=== PATIENT | male | born 1980 | race Caucasian/White ===

== ENCOUNTER 2021-11-03 13:23 | Inpatient (IN) | payer MEDICAID ==
[~2021-11-03] VITALS: Ht 188 cm; Wt 98.1 kg
[2021-11-03] MEDS ORDERED: HALOPERIDOL LACTATE 5 MG/ML VIAL IM ONE (13:45)
[2021-11-03] MEDS ORDERED: DiphenhydrAMINE HCL 50 MG/ML VIAL IM ONE (13:45)
[2021-11-03] MEDS ORDERED: LORazepam 2 MG/ML VIAL IM ONE (13:45)
[2021-11-03 14:08] LABS: BASOPHILS % (AUTO) 0.4 % (0.0-2.0); EOSINOPHILS % (AUTO) 1.1 % (1.0-6.0); HEMATOCRIT 46.1 % (41-53); HEMOGLOBIN 15.9 g/dL (13.5-17.5); LYMPHOCYTES # (AUTO) 3.3 K/uL (1.0-4.8); LYMPHOCYTES % (AUTO) 31.9 % (22.0-44.0); MEAN CORPUSCULAR HEMOGLOBIN 29.9 pg (26.0-34.0); MEAN CORPUSCULAR HGB CONC 34.5 G/dL (31.0-37.0); MEAN CORPUSCULAR VOLUME 87 fL (80-100); MONOCYTES # (AUTO) 0.8 K/uL (0.1-1.0); MONOCYTES % (AUTO) 7.4 % (2.0-9.0); NEUTROPHILS # (AUTO) 6.1 K/uL (1.8-7.7); NEUTROPHILS % (AUTO) 59.2 % (40.0-70.0); PLATELET COUNT (AUTO) 522 K/uL (150-450); RED BLOOD CELL COUNT(AUTO) 5.32 MIL/uL (4.50-5.90); RED CELL DISTRIBUTION WIDTH 14.1 % (11.5-14.5)
[2021-11-03 14:27] LABS: COVID AG,FIA SOURCE NASAL SWAB
[2021-11-03 14:32] LABS: ANION GAP 14 mmol/L (8-16); CALCIUM, TOTAL 9.5 mg/dL (8.8-10.5); CARBON DIOXIDE 25 mmol/L (22-29); CHLORIDE 100 mmol/L (98-107); CREATININE 1.21 mg/dL (0.60-1.30); GLOMERULAR FILTR. RATE CALC > 60 mL/min (>60); GLUCOSE,RANDOM 134 mg/dL (70-110); POTASSIUM 3.4 mmol/L (3.5-5.1); SODIUM SERUM 139 mmol/L (136-145); UREA NITROGEN, BLOOD 11 mg/dL (7-18)
[2021-11-03 14:38] LABS: ALANINE AMINOTRANSFERASE 27 U/L (12-78); ALKALINE PHOSPHATASE 96 U/L (46-116); ASPARTATE AMINOTRANSFERASE 24 U/L (15-37); BILIRUBIN,TOTAL 1.1 mg/dL (0.1-1.0); TOTAL PROTEIN, SERUM 8.7 g/dL (6.4-8.2)
[2021-11-03] MEDS ORDERED: POTASSIUM CHLORIDE 20 MEQ ER TABLET PO ONE (14:45)
[2021-11-03 14:53] LABS: AMPHET/METH SCREEN,URINE POSITIVE (NEGATIVE); BARBITURATE SCREEN, URINE NEGATIVE (NEGATIVE); BENZODIAZEPINES SCREEN,URINE NEGATIVE (NEGATIVE); CANNABINOID SCREEN,URINE POSITIVE (NEGATIVE); COCAINE SCREEN,URINE NEGATIVE (NEGATIVE); METHADONE SCREEN, URINE NEGATIVE (NEGATIVE); OPIATE SCREEN,URINE NEGATIVE (NEGATIVE)
[2021-11-03 14:54] LABS: PHENCYCLIDINE SCREEN,URINE NEGATIVE (NEGATIVE)
[2021-11-03] MEDS ORDERED: INFLUENZA VIRUS VACCINE QVS 2021-22 (6MO+)/PF 60 MCG/0.5 ML SYRINGE IM. ONE (17:45)
[2021-11-03 18:25] VITALS: BP 94/61
[2021-11-04] MEDS ORDERED: CloNIDine HCL 0.1 MG TABLET PO PRN (06:15)
[2021-11-04] MEDS ORDERED: IBUPROFEN 400 MG TABLET PO PRN (06:15)
[2021-11-04] MEDS ORDERED: GuaiFENesin/D-METHORPHAN [SUGAR-FREE] 200-20MG/10 ML SYRUP UDCUP PO PRN (06:15)
[2021-11-04] MEDS ORDERED: PETROLATUM,WHITE 28 GM JELLY TP PRN (06:15)
[2021-11-04] MEDS ORDERED: MAGNESIUM HYDROXIDE SUSPENSION 30 ML UDCUP PO PRN (06:15)
[2021-11-04] MEDS ORDERED: ONDANSETRON HCL 4 MG TABLET PO PRN (06:15)
[2021-11-04] MEDS ORDERED: NICOTINE 14 MG/24 HOUR PATCH TD PRN (06:15)
[2021-11-04] MEDS ORDERED: ACETAMINOPHEN 325 MG TABLET PO PRN (06:15)
[2021-11-04] MEDS ORDERED: MAG HYDROX/AL HYDROX/SIMETH ES 30 ML SUSPENSION UDCUP PO PRN (06:15)
[2021-11-04] MEDS ORDERED: LOPERAMIDE HCL 2 MG CAPSULE PO PRN (06:15)
[2021-11-04] MEDS ORDERED: DOCUSATE SODIUM 100 MG CAPSULE PO PRN (06:15)
[2021-11-04] MEDS ORDERED: ALBUTEROL SULFATE HFA 90 MCG/PUFF 8 GM INHALER IH PRN (06:15)
[2021-11-04 08:00] VITALS: BP 120/72
[2021-11-04] MEDS: LORazepam 2 MG TABLET PO PRN (16:11)
[2021-11-04] MEDS: VENLAFAXINE HCL 150 MG ER CAPSULE PO SCH (17:20)
[2021-11-04] MEDS: DOCOSANOL 10% 2 GM CREAM TP SCH (20:14)
[2021-11-04] MEDS: OLANZapine 10 MG TABLET PO SCH (20:15)
[2021-11-05 08:00] VITALS: BP 132/76
[2021-11-05] MEDS: VENLAFAXINE HCL 150 MG ER CAPSULE PO SCH (09:05)
[2021-11-05] MEDS: DOCOSANOL 10% 2 GM CREAM TP SCH ×3 (09:06→16:06)
[2021-11-05 16:02] VITALS: BP 123/83
[2021-11-05] MEDS: LORazepam 2 MG TABLET PO PRN (16:06)
[2021-11-05] MEDS: MUPIROCIN CALCIUM 2% 22 GM OINTMENT NASAL SCH (17:39)
[2021-11-05] MEDS: OLANZapine 10 MG TABLET PO SCH (20:04)
[2021-11-06] MEDS: LORazepam 2 MG TABLET PO PRN ×2 (06:34→15:59)
[2021-11-06] MEDS: MUPIROCIN CALCIUM 2% 22 GM OINTMENT NASAL SCH ×2 (09:45→16:13)
[2021-11-06] MEDS: DOCOSANOL 10% 2 GM CREAM TP SCH ×3 (09:46→16:13)
[2021-11-06] MEDS: VENLAFAXINE HCL 150 MG ER CAPSULE PO SCH (09:47)
[2021-11-06 16:44] VITALS: BP 148/93
[2021-11-06] MEDS: OLANZapine 10 MG TABLET PO SCH (20:29)
[2021-11-07] MEDS: LORazepam 2 MG TABLET PO PRN ×3 (06:01→22:59)
[2021-11-07] MEDS: VENLAFAXINE HCL 150 MG ER CAPSULE PO SCH (08:31)
[2021-11-07] MEDS: DOCOSANOL 10% 2 GM CREAM TP SCH ×2 (08:32→13:18)
[2021-11-07] MEDS: MUPIROCIN CALCIUM 2% 22 GM OINTMENT NASAL SCH ×2 (08:32→16:24)
[2021-11-07 08:43] VITALS: BP 121/80
[2021-11-07] MEDS ORDERED: KETOROLAC TROMETHAMINE 60 MG/2 ML VIAL IM ONE (16:00)
[2021-11-07] MEDS ORDERED: CEPHALEXIN MONOHYDRATE 500 MG CAPSULE PO ONE (16:00)
[2021-11-07] MEDS ORDERED: DOXYCYCLINE HYCLATE 100 MG TABLET PO ONE (16:00)
[2021-11-07] MEDS ORDERED: GABAPENTIN 300 MG CAPSULE PO ONE (16:00)
[2021-11-07] MEDS ORDERED: LORazepam 2 MG TABLET PO ONE (16:00)
[2021-11-07 16:06] VITALS: BP 128/77
[2021-11-07] MEDS: CEPHALEXIN MONOHYDRATE 500 MG CAPSULE PO SCH (21:31)
[2021-11-07] MEDS: OLANZapine 10 MG TABLET PO SCH (21:31)
[2021-11-08 08:00] VITALS: BP 107/58
[2021-11-08] MEDS: CEPHALEXIN MONOHYDRATE 500 MG CAPSULE PO SCH ×4 (09:42→20:07)
[2021-11-08] MEDS: DOXYCYCLINE HYCLATE 100 MG TABLET PO SCH ×2 (09:42→20:07)
[2021-11-08] MEDS: VENLAFAXINE HCL 150 MG ER CAPSULE PO SCH (09:43)
[2021-11-08] MEDS: MUPIROCIN CALCIUM 2% 22 GM OINTMENT NASAL SCH ×2 (09:45→16:02)
[2021-11-08] MEDS: IBUPROFEN 400 MG TABLET PO PRN ×2 (11:37→20:12)
[2021-11-08] MEDS: LORazepam 2 MG TABLET PO PRN ×2 (11:37→16:15)
[2021-11-08 16:35] VITALS: BP 117/63
[2021-11-08] MEDS: OLANZapine 10 MG TABLET PO SCH (20:07)
[2021-11-08 20:12] VITALS: BP 116/71
[2021-11-09] MEDS: LORazepam 2 MG TABLET PO PRN ×3 (04:28→17:49)
[2021-11-09] MEDS: DOXYCYCLINE HYCLATE 100 MG TABLET PO SCH ×2 (08:07→20:29)
[2021-11-09] MEDS: MUPIROCIN CALCIUM 2% 22 GM OINTMENT NASAL SCH ×2 (08:07→16:18)
[2021-11-09] MEDS: CEPHALEXIN MONOHYDRATE 500 MG CAPSULE PO SCH ×4 (08:07→20:29)
[2021-11-09] MEDS: VENLAFAXINE HCL 150 MG ER CAPSULE PO SCH (08:07)
[2021-11-09 08:18] VITALS: BP 117/63
[2021-11-09 16:12] VITALS: BP 112/74
[2021-11-09] MEDS: HALOPERIDOL 5 MG TABLET PO PRN (16:19)
[2021-11-09] MEDS: OLANZapine 10 MG TABLET PO SCH (20:28)
[2021-11-09] MEDS: ZOLPIDEM TARTRATE 10 MG TABLET PO PRN (20:29)
[2021-11-10 06:18] VITALS: BP 132/88
[2021-11-10] MEDS: LORazepam 2 MG TABLET PO PRN ×3 (06:18→17:01)
[2021-11-10 08:24] VITALS: BP 121/82
[2021-11-10] MEDS: VENLAFAXINE HCL 150 MG ER CAPSULE PO SCH (10:32)
[2021-11-10] MEDS: DOXYCYCLINE HYCLATE 100 MG TABLET PO SCH ×2 (10:32→20:14)
[2021-11-10] MEDS: MUPIROCIN CALCIUM 2% 22 GM OINTMENT NASAL SCH (10:34)
[2021-11-10] MEDS: CEPHALEXIN MONOHYDRATE 500 MG CAPSULE PO SCH ×4 (10:35→20:14)
[2021-11-10 14:05] LABS: COVID AG,FIA SOURCE NASAL SWAB
[2021-11-10] MEDS: HALOPERIDOL 5 MG TABLET PO PRN (15:49)
[2021-11-10 16:06] VITALS: BP 110/55
[2021-11-10] MEDS: OLANZapine 10 MG TABLET PO SCH (20:14)
[2021-11-10] MEDS: ZOLPIDEM TARTRATE 10 MG TABLET PO PRN (20:15)
[2021-11-11 08:05] VITALS: BP 108/86
[2021-11-11] MEDS: DOXYCYCLINE HYCLATE 100 MG TABLET PO SCH ×2 (09:26→20:03)
[2021-11-11] MEDS: VENLAFAXINE HCL 150 MG ER CAPSULE PO SCH (09:26)
[2021-11-11] MEDS: LORazepam 2 MG TABLET PO PRN ×3 (09:27→17:50)
[2021-11-11] MEDS: CEPHALEXIN MONOHYDRATE 500 MG CAPSULE PO SCH ×4 (09:27→20:03)
[2021-11-11] MEDS: HALOPERIDOL 5 MG TABLET PO PRN (15:52)
[2021-11-11 16:30] VITALS: BP 116/56
[2021-11-11] MEDS: ZOLPIDEM TARTRATE 10 MG TABLET PO PRN (20:03)
[2021-11-11] MEDS: OLANZapine 10 MG TABLET PO SCH (20:03)
[2021-11-12] MEDS: LORazepam 2 MG TABLET PO PRN ×3 (06:45→15:53)
[2021-11-12 09:04] VITALS: BP 106/73
[2021-11-12] MEDS: DOXYCYCLINE HYCLATE 100 MG TABLET PO SCH ×2 (09:29→20:26)
[2021-11-12] MEDS: VENLAFAXINE HCL 150 MG ER CAPSULE PO SCH (09:29)
[2021-11-12] MEDS: CEPHALEXIN MONOHYDRATE 500 MG CAPSULE PO SCH ×4 (09:29→20:31)
[2021-11-12] MEDS: HALOPERIDOL 5 MG TABLET PO PRN (15:52)
[2021-11-12 16:05] VITALS: BP 121/78
[2021-11-12] MEDS: ZOLPIDEM TARTRATE 10 MG TABLET PO PRN (20:27)
[2021-11-12] MEDS: OLANZapine 10 MG TABLET PO SCH (20:27)
[2021-11-13] MEDS: CEPHALEXIN MONOHYDRATE 500 MG CAPSULE PO SCH ×4 (08:23→20:08)
[2021-11-13] MEDS: LORazepam 2 MG TABLET PO PRN ×3 (08:23→20:08)
[2021-11-13] MEDS: VENLAFAXINE HCL 150 MG ER CAPSULE PO SCH (08:23)
[2021-11-13] MEDS: DOXYCYCLINE HYCLATE 100 MG TABLET PO SCH ×2 (08:23→20:08)
[2021-11-13 08:24] VITALS: BP 123/92
[2021-11-13] MEDS: HALOPERIDOL 5 MG TABLET PO PRN ×2 (08:33→15:44)
[2021-11-13 16:07] VITALS: BP 126/89
[2021-11-13] MEDS: OLANZapine 10 MG TABLET PO SCH (20:08)
[2021-11-14 08:12] VITALS: BP 107/62
[2021-11-14] MEDS: VENLAFAXINE HCL 150 MG ER CAPSULE PO SCH (08:52)
[2021-11-14] MEDS: DOXYCYCLINE HYCLATE 100 MG TABLET PO SCH ×2 (08:52→20:19)
[2021-11-14] MEDS: CEPHALEXIN MONOHYDRATE 500 MG CAPSULE PO SCH ×3 (08:52→16:29)
[2021-11-14] MEDS: LORazepam 2 MG TABLET PO PRN ×3 (08:53→19:00)
[2021-11-14] MEDS: HALOPERIDOL 5 MG TABLET PO PRN ×2 (15:45→19:00)
[2021-11-14 16:00] VITALS: BP 124/80
[2021-11-14 16:55] VITALS: BP 124/80
[2021-11-14] MEDS: OLANZapine 10 MG TABLET PO SCH (20:19)
[2021-11-14] MEDS: ZOLPIDEM TARTRATE 10 MG TABLET PO PRN (20:20)
[2021-11-15 08:09] VITALS: BP 100/62
[2021-11-15] MEDS: VENLAFAXINE HCL 150 MG ER CAPSULE PO SCH (08:18)
[2021-11-15] MEDS: LORazepam 2 MG TABLET PO PRN ×3 (08:18→19:00)
[2021-11-15 16:24] VITALS: BP 111/79
[2021-11-15] MEDS: HALOPERIDOL 5 MG TABLET PO PRN (19:00)
[2021-11-15] MEDS: OLANZapine 10 MG TABLET PO SCH (20:01)
[2021-11-15] MEDS: ZOLPIDEM TARTRATE 10 MG TABLET PO PRN (20:30)
[2021-11-16 08:10] VITALS: BP 114/73
[2021-11-16] MEDS: LORazepam 2 MG TABLET PO PRN ×2 (10:36→16:10)
[2021-11-16] MEDS: VENLAFAXINE HCL 150 MG ER CAPSULE PO SCH (10:36)
[2021-11-16 13:54] LABS: COVID AG,FIA SOURCE NASOPHARYNGEAL
[2021-11-16 16:25] VITALS: BP 116/80
[2021-11-16 20:27] VITALS: BP 140/78
[2021-11-16] MEDS: ZOLPIDEM TARTRATE 10 MG TABLET PO PRN (20:33)
[2021-11-16] MEDS: OLANZapine 10 MG TABLET PO SCH (20:35)
[2021-11-17] MEDS: LORazepam 2 MG TABLET PO PRN (07:41)
[2021-11-17] MEDS: VENLAFAXINE HCL 150 MG ER CAPSULE PO SCH (07:42)
[2021-11-17 08:00] VITALS: BP 130/90
[2021-11-17] MEDS ORDERED: OLAN10 PO (10:00)
[2021-11-17] MEDS ORDERED: VENL150C2 PO (10:00)
== END 2021-11-17 10:15 | disposition home or self-care (01) | DRG 750 ==
LOC: EMS 13:30 → 3EC 14:06
PROVIDERS: ADMIT Psychiatry & Neurology Child & Adolescent Psychiatry; ATTEND Psychiatry & Neurology Child & Adolescent Psychiatry
DX: F25.0 Schizoaffective disorder, bipolar type (principal); D75.839 Thrombocytosis, unspecified; F12.90 Cannabis use, unspecified, uncomplicated; F17.200 Nicotine dependence, unspecified, uncomplicated; F19.11 Other psychoactive substance abuse, in remission; F41.9 Anxiety disorder, unspecified; E87.6 Hypokalemia; B00.1 Herpesviral vesicular dermatitis; F10.10 Alcohol abuse, uncomplicated; Z20.822 Contact with and (suspected) exposure to COVID-19; F99 Mental disorder, not otherwise specified; F15.10 Other stimulant abuse, uncomplicated
CPT/HCPCS: 80053; 84132; 85025; 87081; 93005; 94640; 99285; G0480; J1200; J1630; J1885; J2060

== ENCOUNTER 2022-04-27 14:44 | Inpatient (IN) | payer MEDICAID ==
[~2022-04-27] VITALS: Ht 185.4 cm; Wt 108.4 kg
[~2022-04-27 14:44] MED LIST: OLAN10 PO; VENL150C4 PO
[2022-04-28] MEDS ORDERED: HALOPERIDOL 5 MG TABLET PO PRN (21:30)
[2022-04-28] MEDS ORDERED: PNEUMOCOCCAL VACCINE POLYVALENT 0.5 ML VIAL [PPSV23] IM. ONE (21:30)
[2022-04-28] MEDS: LORazepam 2 MG TABLET PO PRN (22:05)
[2022-04-28 22:47] VITALS: BP 129/78
[2022-04-29 07:05] LABS: BASOPHILS % (AUTO) 0.3 % (0.0-2.0); EOSINOPHILS % (AUTO) 1.2 % (1.0-6.0); HEMATOCRIT 36.8 % (41-53); HEMOGLOBIN 12.5 g/dL (13.5-17.5); LYMPHOCYTES # (AUTO) 3.5 K/uL (1.0-4.8); LYMPHOCYTES % (AUTO) 44.2 % (22.0-44.0); MEAN CORPUSCULAR HEMOGLOBIN 29.4 pg (26.0-34.0); MEAN CORPUSCULAR HGB CONC 34.1 G/dL (31.0-37.0); MEAN CORPUSCULAR VOLUME 86 fL (80-100); MONOCYTES # (AUTO) 0.5 K/uL (0.1-1.0); MONOCYTES % (AUTO) 6.4 % (2.0-9.0); NEUTROPHILS # (AUTO) 3.8 K/uL (1.8-7.7); NEUTROPHILS % (AUTO) 47.9 % (40.0-70.0); PLATELET COUNT (AUTO) 294 K/uL (150-450); RED BLOOD CELL COUNT(AUTO) 4.26 MIL/uL (4.50-5.90); RED CELL DISTRIBUTION WIDTH 13.6 % (11.5-14.5)
[2022-04-29 07:38] LABS: ALANINE AMINOTRANSFERASE 25 U/L (12-78); ALKALINE PHOSPHATASE 59 U/L (46-116); ANION GAP 6 mmol/L (8-16); ASPARTATE AMINOTRANSFERASE 13 U/L (15-37); BILIRUBIN,TOTAL 0.2 mg/dL (0.1-1.0); CALCIUM, TOTAL 8.7 mg/dL (8.8-10.5); CARBON DIOXIDE 30 mmol/L (22-29); CHLORIDE 101 mmol/L (98-107); CHOL/HDL RATIO 4.2 (4.2-7.3); CHOLESTEROL 140 mg/dL (131-200); CREATININE 0.97 mg/dL (0.60-1.30); FREE T4 (FREE THYROXINE) 0.97 ng/dL (0.76-1.46); GLUCOSE,RANDOM 92 mg/dL (70-110); HDL CHOLESTEROL 33 mg/dL (40-60); LDL CHOL (CALC.) 84 mg/dL (0-130); POTASSIUM 3.8 mmol/L (3.5-5.1); SODIUM SERUM 137 mmol/L (136-145); THYROID STIMULATING HORMONE 3.54 uIU/mL (0.36-3.74); TOTAL PROTEIN, SERUM 6.5 g/dL (6.4-8.2); TRIGLYCERIDES 116 mg/dL (15-150); UREA NITROGEN, BLOOD 19 mg/dL (7-18)
[2022-04-29 07:41] LABS: GLOMERULAR FILTR. RATE CALC > 60 mL/min (>60)
[2022-04-29] MEDS ORDERED: NICOTINE 14 MG/24 HOUR PATCH TD PRN (07:45)
[2022-04-29] MEDS ORDERED: PETROLATUM,WHITE 28 GM JELLY TP PRN (07:45)
[2022-04-29] MEDS ORDERED: ALBUTEROL SULFATE HFA 90 MCG/PUFF 8 GM INHALER IH PRN (07:45)
[2022-04-29] MEDS ORDERED: LOPERAMIDE HCL 2 MG CAPSULE PO PRN (07:45)
[2022-04-29] MEDS ORDERED: MAGNESIUM HYDROXIDE SUSPENSION 30 ML UDCUP PO PRN (07:45)
[2022-04-29] MEDS ORDERED: MAG HYDROX/AL HYDROX/SIMETH ES 30 ML SUSPENSION UDCUP PO PRN (07:45)
[2022-04-29] MEDS ORDERED: DOCUSATE SODIUM 100 MG CAPSULE PO PRN (07:45)
[2022-04-29] MEDS ORDERED: ACETAMINOPHEN 325 MG TABLET PO PRN (07:45)
[2022-04-29] MEDS ORDERED: ONDANSETRON HCL 4 MG TABLET PO PRN (07:45)
[2022-04-29] MEDS ORDERED: IBUPROFEN 400 MG TABLET PO PRN (07:45)
[2022-04-29] MEDS ORDERED: CloNIDine HCL 0.1 MG TABLET PO PRN (07:45)
[2022-04-29] MEDS ORDERED: GuaiFENesin/D-METHORPHAN [SUGAR-FREE] 200-20MG/10 ML SYRUP UDCUP PO PRN (07:45)
[2022-04-29 08:10] VITALS: BP 105/58
[2022-04-29] MEDS: VENLAFAXINE HCL 150 MG ER CAPSULE PO SCH (10:20)
[2022-04-29] MEDS: LORazepam 2 MG TABLET PO PRN ×3 (12:11→21:30)
[2022-04-29 20:10] VITALS: BP 101/68
[2022-04-29] MEDS: OLANZapine 10 MG TABLET PO SCH (20:27)
[2022-04-30 08:07] VITALS: BP 103/74
[2022-04-30] MEDS: VENLAFAXINE HCL 150 MG ER CAPSULE PO SCH (08:16)
[2022-04-30] MEDS: LORazepam 2 MG TABLET PO PRN ×2 (08:26→13:17)
[2022-04-30] MEDS: OLANZapine 10 MG TABLET PO SCH (20:11)
[2022-04-30 20:15] VITALS: BP 106/68
[2022-05-01] MEDS: LORazepam 2 MG TABLET PO PRN ×2 (05:57→17:20)
[2022-05-01] MEDS: VENLAFAXINE HCL 150 MG ER CAPSULE PO SCH (08:02)
[2022-05-01 08:23] VITALS: BP 112/64
[2022-05-01] MEDS: OLANZapine 10 MG TABLET PO SCH (20:04)
[2022-05-01 20:09] VITALS: BP 107/66
[2022-05-02] MEDS: LORazepam 2 MG TABLET PO PRN ×2 (07:19→17:30)
[2022-05-02 09:02] VITALS: BP 117/66
[2022-05-02] MEDS: VENLAFAXINE HCL 150 MG ER CAPSULE PO SCH (09:52)
[2022-05-02 20:02] VITALS: BP 117/69
[2022-05-02] MEDS: OLANZapine 10 MG TABLET PO SCH (20:05)
[2022-05-03 08:11] VITALS: BP 106/62
[2022-05-03] MEDS: VENLAFAXINE HCL 150 MG ER CAPSULE PO SCH (08:27)
[2022-05-03] MEDS: LORazepam 2 MG TABLET PO PRN ×2 (08:32→16:59)
[2022-05-03 14:00] LABS: GLUCOMETER DEV NAME(LOC) POC.BV
[2022-05-03 20:32] VITALS: BP 103/63
[2022-05-03] MEDS: OLANZapine 10 MG TABLET PO SCH (22:32)
[2022-05-04] MEDS: LORazepam 2 MG TABLET PO PRN ×3 (06:25→20:08)
[2022-05-04 08:10] VITALS: BP 117/60
[2022-05-04] MEDS: VENLAFAXINE HCL 150 MG ER CAPSULE PO SCH (08:32)
[2022-05-04] MEDS: OLANZapine 10 MG TABLET PO SCH (20:08)
[2022-05-04 20:40] VITALS: BP 105/63
[2022-05-05 08:14] VITALS: BP 106/66
[2022-05-05] MEDS: LORazepam 2 MG TABLET PO PRN ×3 (08:38→20:38)
[2022-05-05] MEDS: VENLAFAXINE HCL 150 MG ER CAPSULE PO SCH (08:39)
[2022-05-05] MEDS: OLANZapine 10 MG TABLET PO SCH (20:02)
[2022-05-05 20:24] VITALS: BP 121/78
[2022-05-06] MEDS: VENLAFAXINE HCL 150 MG ER CAPSULE PO SCH (08:12)
[2022-05-06] MEDS: LORazepam 2 MG TABLET PO PRN ×2 (08:12→16:04)
[2022-05-06 08:14] VITALS: BP 109/64
[2022-05-06 20:17] VITALS: BP 138/83
[2022-05-06] MEDS: OLANZapine 10 MG TABLET PO SCH (20:35)
[2022-05-06] MEDS: ZOLPIDEM TARTRATE 10 MG TABLET PO PRN (22:40)
[2022-05-07] MEDS: VENLAFAXINE HCL 150 MG ER CAPSULE PO SCH (09:34)
[2022-05-07 11:45] VITALS: BP 116/72
[2022-05-07] MEDS: LORazepam 2 MG TABLET PO PRN (11:56)
[2022-05-07 20:15] VITALS: BP 121/78
[2022-05-07] MEDS: OLANZapine 10 MG TABLET PO SCH (20:55)
[2022-05-07] MEDS: ZOLPIDEM TARTRATE 10 MG TABLET PO PRN (20:55)
[2022-05-07] MEDS ORDERED: LORazepam 1 MG TABLET PO PRN (21:30)
[2022-05-08] MEDS: VENLAFAXINE HCL 150 MG ER CAPSULE PO SCH (08:09)
[2022-05-08 08:32] VITALS: BP 116/71
[2022-05-08 20:04] VITALS: BP 117/61
[2022-05-08] MEDS: OLANZapine 10 MG TABLET PO SCH (20:06)
[2022-05-09 08:29] VITALS: BP 112/60
[2022-05-09] MEDS: VENLAFAXINE HCL 150 MG ER CAPSULE PO SCH (08:29)
[2022-05-09] MEDS: OLANZapine 10 MG TABLET PO SCH (20:03)
[2022-05-09 21:04] VITALS: BP 115/62
[2022-05-09] MEDS: ZOLPIDEM TARTRATE 10 MG TABLET PO PRN (21:33)
[2022-05-10] MEDS: VENLAFAXINE HCL 150 MG ER CAPSULE PO SCH (08:56)
[2022-05-10 09:05] VITALS: BP 100/66
[2022-05-10 09:11] LABS: GLUCOMETER DEV NAME(LOC) POC.BV
[2022-05-10 20:15] VITALS: BP 109/69
[2022-05-10] MEDS: OLANZapine 10 MG TABLET PO SCH (20:18)
[2022-05-11 08:29] VITALS: BP 114/66
[2022-05-11] MEDS: VENLAFAXINE HCL 150 MG ER CAPSULE PO SCH (08:43)
[2022-05-11] MEDS ORDERED: VENL150C4 PO (12:59)
[2022-05-11] MEDS ORDERED: OLAN10 PO (12:59)
== END 2022-05-11 16:57 | disposition home or self-care (01) | DRG 750 ==
LOC: B2S 04-28 21:14
PROVIDERS: ADMIT Psychiatry & Neurology Child & Adolescent Psychiatry; ATTEND Psychiatry & Neurology Child & Adolescent Psychiatry
DX: F25.0 Schizoaffective disorder, bipolar type (principal); R45.851 Suicidal ideations; B19.20 Unspecified viral hepatitis C without hepatic coma; F31.9 Bipolar disorder, unspecified; G47.00 Insomnia, unspecified; D64.9 Anemia, unspecified; E66.9 Obesity, unspecified; F10.10 Alcohol abuse, uncomplicated; Z20.822 Contact with and (suspected) exposure to COVID-19; F15.10 Other stimulant abuse, uncomplicated; F12.10 Cannabis abuse, uncomplicated; Z68.31 Body mass index [BMI] 31.0-31.9, adult; Z59.00 Homelessness unspecified; Z91.51 Personal history of suicidal behavior; Z79.899 Other long term (current) drug therapy
CPT/HCPCS: 80053; 80061; 83036; 84439; 84443; 85025; 90732

== ENCOUNTER 2022-05-20 07:24 | Emergency (ER) | payer MEDICAID ==
[~2022-05-20] VITALS: Ht 188 cm; Wt 100.0 kg
[2022-05-20] MEDS: HALOPERIDOL LACTATE 5 MG/ML VIAL IM ONE (08:13)
[2022-05-20] MEDS: DiphenhydrAMINE HCL 50 MG/ML VIAL IM ONE (08:13)
[2022-05-20] MEDS: LORazepam 2 MG/ML VIAL IM ONE (08:13)
[2022-05-20 08:23] LABS: BASOPHILS % (AUTO) 0.7 % (0.0-2.0); EOSINOPHILS % (AUTO) 0.6 % (1.0-6.0); HEMATOCRIT 37.8 % (41-53); HEMOGLOBIN 12.5 g/dL (13.5-17.5); LYMPHOCYTES # (AUTO) 2.4 K/uL (1.0-4.8); LYMPHOCYTES % (AUTO) 18.8 % (22.0-44.0); MEAN CORPUSCULAR HEMOGLOBIN 29.1 pg (26.0-34.0); MEAN CORPUSCULAR VOLUME 88 fL (80-100); MONOCYTES # (AUTO) 1.2 K/uL (0.1-1.0); MONOCYTES % (AUTO) 9.3 % (2.0-9.0); NEUTROPHILS # (AUTO) 8.9 K/uL (1.8-7.7); NEUTROPHILS % (AUTO) 70.6 % (40.0-70.0); PLATELET COUNT (AUTO) 450 K/uL (150-450); RED BLOOD CELL COUNT(AUTO) 4.28 MIL/uL (4.50-5.90)
[2022-05-20 08:31] LABS: ANION GAP 8 mmol/L (8-16); CALCIUM, TOTAL 9.4 mg/dL (8.8-10.5); CARBON DIOXIDE 25 mmol/L (22-29); CHLORIDE 97 mmol/L (98-107); CREATININE 1.01 mg/dL (0.60-1.30); GLUCOSE,RANDOM 105 mg/dL (70-110); POTASSIUM 3.5 mmol/L (3.5-5.1); SODIUM SERUM 130 mmol/L (136-145); UREA NITROGEN, BLOOD 14 mg/dL (7-18)
[2022-05-20 08:33] LABS: GLOMERULAR FILTR. RATE CALC > 60 mL/min (>60)
[2022-05-20 08:37] LABS: ALANINE AMINOTRANSFERASE 35 U/L (12-78); ALBUMIN 4.3 g/dL (3.4-5.0); ALKALINE PHOSPHATASE 94 U/L (46-116); ASPARTATE AMINOTRANSFERASE 43 U/L (15-37); TOTAL PROTEIN, SERUM 8.4 g/dL (6.4-8.2)
[2022-05-20 14:30] VITALS: BP 104/75
== END 2022-05-20 16:22 | disposition home or self-care (01) ==
LOC: EMS 07:26
DX: F20.9 Schizophrenia, unspecified (principal); F31.9 Bipolar disorder, unspecified; F10.20 Alcohol dependence, uncomplicated; F15.10 Other stimulant abuse, uncomplicated; F17.210 Nicotine dependence, cigarettes, uncomplicated; K75.9 Inflammatory liver disease, unspecified
CPT/HCPCS: 99285; 80053; 85025; 36415; 96372; G0480; J1200; J1630; J2060